=== PATIENT | male | born 1950 | race Caucasian/White ===

== ENCOUNTER 2017-06-19 19:44 | Emergency (ER) | payer MEDICARE, OTHER | END 2017-06-19 20:54 | disposition home or self-care (01) | LOC: D.ER 19:44 | DX: J30.89 Other allergic rhinitis (principal); I10 Essential (primary) hypertension; F17.200 Nicotine dependence, unspecified, uncomplicated ==

== ENCOUNTER 2017-10-21 04:12 | Emergency (ER) | payer OTHER | END 2017-10-21 05:50 | disposition home or self-care (01) | LOC: D.ER 04:12 | DX: T78.3XXA Angioneurotic edema, initial encounter (principal) ==

== ENCOUNTER → 2018-04-05 07:19 | Outpatient (CLI) | payer OTHER ==
[2018-04-10 13:59] LABS: C1Q BINDING 1.8 ug Eq/mL (())
[2018-04-17 16:14] LABS: COMPLEMENT C1Q 13.8 mg/dL (11.8-23.8)
== END | disposition home or self-care (01) ==
LOC: D.LAB 07:19
PROVIDERS: Allergy & Immunology
DX: T78.3XXA Angioneurotic edema, initial encounter (principal)

== ENCOUNTER → 2019-07-23 12:45 | Outpatient (CLI) | payer OTHER | END | disposition home or self-care (01) | LOC: D.LABREF 12:45 | PROVIDERS: ATTEND Urology | DX: Z00.00 Encounter for general adult medical examination without abnormal findings (principal) ==

== ENCOUNTER → 2019-08-22 08:38 | Outpatient (CLI) | payer OTHER ==
--- NOTE | 2019-08-23 13:51 | EC ---
PATIENT:MELVIN ANGUIANO DATE OF SERVICE: 08/22/19 SEX: M MEDICAL RECORD: [id number] DATE OF : [birth year] LOCATION:[facility] AGE OF PATIENT: 68 ADMISSION DATE: 08/22/19 REFERRING PHYSICIAN: INTERPRETING PHYSICIAN: CHANDANA HERNANDEZ MD ECHOCARDIOGRAM REPORT ECHO CHARGES 4 ECHO COMPLETE Date: 08/22/19 CLINICAL DIAGNOSIS: HTN/HEART MURMUR/ABN EKG ECHOCARDIOGRAPHIC MEASUREMENTS (adult normal given) AC root (d.<3.7cm) 3.9 cm LV Septum d (<1.2 cm> 1.4 cm Valve Excursion 2.0 cm LV Septum (systole) 1.7 cm Left Atria (s.<4.0cm> 4.2 cm LVPW d(<1.2cm) 1.6 cm RV (d.<2.3cm) 3.6 cm LVPW (sytole) 1.8 cm LV diastole(<5.6CM) 4.9 cm MV E-F(>70mm/sec) cm LV systole 3.1 cm LVOT Diameter 1.9 cm MV exc.(>10mm) 1.5 cm Est.ejection fraction (50-75%) % DOPPLER: LVIT cm/sec A 97.0 cm/sec E 80.0 cm/sec LA cm/sec RVSP 35 mmHg LVOT 111 cm/sec AOP1/2T m/s Asc. Ao 131 cm/sec RVOT 81 cm/sec RA cm/sec PA 121 cm/sec AV Gradient Peak 6.87 mmHg AV Mean 3.69 mmHg AV Area 2.5 cm MV Gradient Peak 4.07 mmHg MV Mean 1.67 mmHg MV Area cm COMMENTS: Fur Puller: 2 MELLO HERNANDEZ Cloth Printing Back Tender: 3 Dr. Rock TAPE# PACS Pericardial Effusion N DATE OF SERVICE: Adequate 2D, color flow, spectral Doppler, and M-mode. LVH is present. LV internal dimensions are normal. Wall motion is normal. EF is greater than or equal to 55%. Aortic valve is tricuspid. No evidence of stenosis by Doppler interrogation. The left atrium is minimally dilated at 4.2 cm. Mitral valve shows no prolapse. Mild MR. Right-sided chambers grossly normal. Trace TR. TRANSINT:[id number] Voice Confirmation ID: [id number] DOCUMENT ID: [id number] ECHOCARDIOGRAM REPORT [id number] MELVIN ANGUIANO GREGORY A MD at 1351 CC: [id number] DICTATION DATE: 08/23/19 1157 SNATH HANDLE ASSEMBLER: 08/23/19 1219 DEP CLI 08/22/19 [id number] [place] [address]
== END | disposition home or self-care (01) ==
LOC: D.HCCECHO 08:38
PROVIDERS: ATTEND Internal Medicine Interventional Cardiology
DX: I10 Essential (primary) hypertension (principal)

== ENCOUNTER → 2019-08-29 08:10 | Outpatient (CLI) | payer OTHER ==
--- NOTE | 2019-09-02 09:28 | ST ---
PATIENT:MELVIN ANGUIANO MEDICAL RECORD: [id number] SEX: M LOCATION:[facility] ORDER #: ADMISSION DATE: 08/29/19 AGE OF PATIENT: 68 REFERRING PHYSICIAN: INTERPRETING PHYSICIAN: VANI BERMAN MD DATE OF SERVICE: 08/29/2019 PROCEDURE: Nuclear stress test. INDICATION: Abnormal ECG, shortness of breath, hypertension. PREOPERATIVE EVALUATION: He was exercised on standard Moi protocol for 8 minutes, terminated due to achievement of 85% max target heart rate response with 33 mCi of sestamibi injected at peak stress, 11 mCi used for rest images. FINDINGS: Gated SPECT reveals preserved ejection fraction at 55% with good wall motion and thickening and brightening throughout all segments. SPECT imaging Cardiolite was used as myocardial fusion agent. There is homogeneous uptake throughout all segments at rest and stress with no evidence of inducible ischemia or previous infarction. OVERALL IMPRESSION: 1. This is a normal nuclear stress test with no evidence of inducible ischemia or previous infarction. 2. Gated SPECT reveals a preserved ejection fraction at 55%. In this patient with ongoing symptomatology, the current scan does not suggest the presence of hemodynamically significant coronary artery disease. Evaluate noncardiac etiology of chest pain. TRANSINT:[id number] Voice Confirmation ID: [id number] DOCUMENT ID: [id number] VANI BERMAN MD at 0928 CC: TEVIN MCCLELLAN MD [id number] DICTATION DATE: 08/30/19 0958 AGRICULTURAL LOAN OFFICER: 08/30/192057 DEP CLI 08/29/19 [id number] [place] [address]
== END | disposition home or self-care (01) ==
LOC: D.HCCARDIO 08:10
PROVIDERS: ATTEND Internal Medicine Interventional Cardiology
DX: I20.9 Angina pectoris, unspecified (principal)

== ENCOUNTER 2020-04-14 05:11 | Day surgery (SDC) | payer OTHER ==
[~2020-04-14] VITALS: Ht 182.9 cm; Wt 84.4 kg
--- NOTE | ~2020-04-14 | OP ---
PATIENT NAME: MELVIN ANGUIANO MEDICAL RECORD: [id number] :48 LOCATION:D.[facility] ADMISSION DATE: SURGEON: YFN LANE MD DATE OF OPERATION: 04/14/2020 PREOPERATIVE DIAGNOSES: 1. Left inguinal hernia. 2. Ventral hernia. 3. Benign prostatic hypertrophy. 4. Hyperlipidemia. POSTOPERATIVE DIAGNOSES: 1. Left inguinal hernia. 2. Ventral hernia. 3. Benign prostatic hypertrophy. 4. Hyperlipidemia. PROCEDURE: 1. Left inguinal hernia repair with large PHS mesh. 2. Ventral hernia repair. SURGEON: Yfn Lane MD REPORT OF PROCEDURE: The patient's abdomen and left groin were prepped and draped in sterile fashion. An oblique incision was made above the inguinal ligament on the left side of the abdomen. Electrocautery was used to dissect through the subcutaneous tissues to the external oblique fascia. There was a large venous complex encountered and this was tied off proximally and distally with 3-0 silk ties. We opened up the external oblique to the external ring. The patient had a large hernia defect present. We were able to manipulate the spermatic cord and testicle up in order to facilitate exposure of this large hernia sac. We eventually were able to dissect this hernia sac free from the patient's spermatic cord. The hernia sac contained some bowel, which appeared to be a sigmoid colon. We eventually were able to reduce the hernia and its sac back into the abdominal cavity. I opened up this preperitoneal space of Retzius and then placed a large PHS mesh through the indirect inguinal hernia defect. This was sutured down on all sides using multiple interrupted 0 Vicryls. The patient's ilioinguinal nerve was found and high ligated. There were actually 2 nerves that were found and both of these were high ligated. We irrigated out the wound with normal saline and assured there was no sign of any bleeding. I pushed the testicle back into the scrotum at this point. The external oblique fascia was then closed with running 2-0 Vicryl, Larry's was closed with interrupted 3-0 Vicryl and the skin was closed with running subcutaneous 5-0 Monocryl. A 10 mL of 0.25% Marcaine with epinephrine was infused into the surrounding tissues. We then made a semicircular incision on the inferior aspect of the umbilicus. Electrocautery was used to dissect through the subcutaneous tissues. We came around the umbilical stalk. The patient had a small hernia defect just inferior to the umbilicus. In order to see the superior aspect of this, we had to open up the hernia sac and free up the fascia in a 360-degree fashion. Once we did this, we were able to high ligate the fat-containing hernia defect and placed this back into the abdominal cavity. The hernia defect was about 1 cm wide x 0.5 cm long. After we cleared off the edges then this was reapproximated with interrupted 0 Prolenes times 2. The umbilicus was tacked down with a single interrupted 3-0 Vicryl and the subcutaneous tissues were reapproximated with interrupted 3-0 Vicryl. The skin OPERATIVE REPORT [id number] MELVIN ANGUIANO incision was closed with running subcutaneous 5-0 Monocryl. A 10 mL of 0.25% Marcaine plain was infused into the surrounding tissues and the wounds were dressed appropriately. COMPLICATIONS: None. CONDITION: Stable. ANESTHESIA: General endotracheal and local. BLOOD LOSS: Minimal. TRANSINT:[id number] Voice Confirmation ID: [id number] DOCUMENT ID: [id number] YFN LANE MD CC: TEVIN MCCLELLAN MD [id number] DICTATION DATE: 04/14/20901 HEADING REPAIRER: 04/14/20 1614 [facility] 04/14/20 [facility] [address] [place] [address]
[~2020-04-14 05:11] MED LIST: NORVASC5 MG PO
[2020-04-14 05:42] LABS: BASOPHILS 0.6 % (0-2); EOSINOPHILS 4.4 % (0-7); HEMATOCRIT 40.1 % (42.0-54.0); HEMOGLOBIN 13.3 g/dL (13.5-17.5); IMMATURE GRANULOCYTES 0.2 % (0-5); LYMPHOCYTES 23.8 % (15-50); MCH 31.1 pg (26.0-34.0); MCHC 33.2 g/dL (31.0-37.0); MCV 93.9 fL (80.0-100.0); MEAN PLATELET VOLUME 8.8 fL (7.4-10.4); MONOCYTES 10.2 % (2-11); NEUTROPHILS 60.8 % (40-80); PLATELET COUNT 263 10x3/uL (130-400); RBC 4.27 10x6/uL (4.20-6.10); RDW 13.6 % (11.5-14.5); WBC 6.2 10x3/uL (4.8-10.8)
[2020-04-14 06:16] LABS: CALC OSMOLALITY 279 mosm/kg (275-300); CALCIUM 9.6 mg/dL (8.5-10.1); CARBON DIOXIDE 27.3 mmol/L (21.0-32.0); CHLORIDE - SERUM 105 mmol/L (98-107); GLUCOSE 114 mg/dL (74-106); POTASSIUM - SERUM 4.1 mmol/L (3.5-5.1); SODIUM 139 mmol/L (136-145); UREA NITROGEN 15 mg/dL (7-18); eGFR NON AFRICAN AMERICAN 78 mL/min (90-120)
[2020-04-14 06:53] VITALS: BP 138/79; Ht 182.9 cm; Wt 84.4 kg
[2020-04-14] MEDS ORDERED: HYDROCODON-ACE1 EA10 PO (08:55)
--- NOTE | 2020-04-14 12:05 | NUR ---
PATIENT AMBULATES TO BATHROOM AND VOIDS MODERATE AMOUNT IN TOILET. RIGHT HAND PIV DC'D WITH TIP INTACT. PATIENT DRESSING IN PERSONAL CLOTHING.
--- NOTE | 2020-04-14 12:30 | NUR ---
DISCHARGE INSTRUCTIONS REVIEWED WITH PATIENT AND SPOUSE. DISCHARGED HOME VIA WHEELCHAIR TO PRIVATE VEHICLE WITH SPOUSE
== END 2020-04-14 12:30 | disposition home or self-care (01) ==
LOC: D.OPS 05:11 → D.PAN 07:30 → D.OPS 12:30
PROVIDERS: ATTEND Surgery
DX: K40.90 Unilateral inguinal hernia, without obstruction or gangrene, not specified as recurrent (principal); K43.9 Ventral hernia without obstruction or gangrene; N40.0 Benign prostatic hyperplasia without lower urinary tract symptoms; E78.5 Hyperlipidemia, unspecified; I11.9 Hypertensive heart disease without heart failure